=== PATIENT | female | born 1945 | race Caucasian/White ===

== ENCOUNTER 2018-03-07 14:00 | Emergency (ER) | payer MEDICARE, OTHER, SELFPAY ==
[2018-03-07 14:05] VITALS: BP 107/66; PULSE 65; RESP 20; TEMP 36.4; O2SAT 98
--- NOTE | 2018-03-07 14:12 | ED.UPPEXIN ---
HPI - Extremity Injury (Upper) <Fiordaliza Soares PA-C - Last Filed: 03/07/18 21:56> General Chief Complaint: Extremity Injury, Upper Stated Complaint: RIGHT SHOULDER POSSIBLY DISLOCATED Time Seen by Provider: 03/07/18 14:12 Source: patient Mode of arrival: ambulatory Limitations: no limitations History of Present Illness HPI narrative: This 72-year-old female was walking on wet pavement when she slipped and fell bracing on her outstretched right hand and arm. She felt a pop and then exquisite pain in her shoulder. She felt like it went out of joint, and states pain was so severe she got sweaty and almost passed out. She states that she had numbness and tingling radiating down into her arm. She states that pain has improved, and she does not have the radiation and numb/tingly sensation that she did initially. She denies other injuries such as head contusion, neck pain, or LOC. She states that she bumped her knee slightly but not bothering her, no difficulty walking. She states that she does not have any pain in other joints or in her hand. Related Data Previous Rx's Medication Instructions Recorded hydrocodone-acetaminophen [[place]] 1 tab PO Q6H PRN #10 tab 03/07/18 Allergies Allergy/AdvReac Type Severity Reaction Status Date / Time cephalexin [From Keflex] Allergy Verified 03/07/18 14:10 Review of Systems <Fiordaliza Soares PA-C - Last Filed: 03/07/18 21:56> Review of Systems All systems reviewed & are unremarkable except as noted in HPI and below Exam <Fiordaliza Soares PA-C - Last Filed: 03/07/18 21:56> Narrative Exam Narrative: GENERAL APPEARANCE: Patient appears slightly uncomfortable holding her right forearm, in NAD. LUNGS: Clear to auscultation bilaterally. HEART: Rate and rhythm regular without murmur, normal S1 and S2, no S3 or S4. MUSCULOSKELETAL: Right shoulder no tenderness over bony prominences. She holds in abduction with elbow flexed. No tenderness over the upper arm, elbow, forearm, wrist, hand or fingers. Plush Cutter strength 5/5. NEUROVASCULAR: right hand fingers are warm and pink, brisk cap refill, sensation grossly intact DERMATOLOGIC: No lacerations, ecchymoses or abrasions on the right upper extremity Initial Vital Signs Initial Vital Signs: Vital Signs Temperature 97.5 F L 03/07/18 14:05 Pulse Rate 65 03/07/18 14:05 Respiratory Rate 20 03/07/18 14:05 Blood Pressure 107/66 03/07/18 14:05 Pulse Oximetry 98 03/07/18 14:05 <Bryanna Villa DO - Last Filed: 03/08/18 08:10> Initial Vital Signs Initial Vital Signs: Vital Signs Temperature 97.5 F L 03/07/18 14:05 Pulse Rate 65 03/07/18 14:05 Respiratory Rate 20 03/07/18 14:05 Blood Pressure 107/66 03/07/18 14:05 Pulse Oximetry 98 03/07/18 14:05 Course <Fiordaliza Soares PA-C - Last Filed: 03/07/18 21:56> Orders Ordered: Discontinued Medications Hydrocodone Bitart/Acetaminophen ([place] 5/325) 1 tab PO NOW ONE Stop: 03/07/18 14:18 Last Admin: 03/07/18 14:35 Dose: 1 tab Ibuprofen (Advil) 400 mg PO NOW ONE Stop: 03/07/18 14:18 Last Admin: 03/07/18 14:35 Dose: 400 mg Vital Signs - 8 hr 03/07/18 14:05 03/07/18 16:10 Temperature 97.5 F L Pulse Rate 65 55 L Respiratory Rate 20 15 Blood Pressure 107/66 107/46 L Pulse Oximetry 98 100 <Bryanna Villa DO - Last Filed: 03/08/18 08:10> Orders Ordered: Discontinued Medications Hydrocodone Bitart/Acetaminophen ([place] 5/325) 1 tab PO NOW ONE Stop: 03/07/18 14:18 Last Admin: 03/07/18 14:35 Dose: 1 tab Ibuprofen (Advil) 400 mg PO NOW ONE Stop: 03/07/18 14:18 Last Admin: 03/07/18 14:35 Dose: 400 mg Vital Signs - 8 hr 03/07/18 14:05 03/07/18 16:10 Temperature 97.5 F L Pulse Rate 65 55 L Respiratory Rate 20 15 Blood Pressure 107/66 107/46 L Pulse Oximetry 98 100 MDM - Extremity Injury (Upper) <Fiordaliza Soares PA-C - Last Filed: 03/07/18 21:56> Imaging Data shoulder: Radiologist's impression: BACK Shoulder X-Ray (Signed) Chanel Baez - 03/07/18 View Report History [address] [address] XRay Report Signed Patient: Mare Ragsdale MR#: [id number] : 1945 Acct:[id number] Age/Sex: 72 / F Date of Service: 03/07/18 Loc: ED Accession Number: [id number] Procedure: XR shoulder RT min 2V Ordering Provider: Fiordaliza Soares P.A-C PROCEDURE: XR SHOULDER RT MIN 2V INDICATIONS: right shouder pain from ground level fall, pain, poss disloc TECHNIQUE: 3 views of the shoulder were acquired. COMPARISON: None. FINDINGS: Bones: There is a questionable fracture of the superior glenoid. No other fracture or dislocation. Visualized portions of the ribs are intact. Soft tissues: No suspicious soft tissue calcifications. IMPRESSION: Questionable superior glenoid fracture. No other fracture or dislocation. Dictated by: Chanel Baez M.D. on 03/07/2018 at 15:00 Approved by: Chanel Baez M.D. on 03/07/2018 at 15:01 Discharge Plan Departure Patient Disposition: Home Clinical Impression: Glenoid fracture of shoulder Discharge Date/Time: 03/07/18 16:12 Interventions: ED Discharge Assessment Last Done: 03/07/18 16:10 Instructions: DI for Shoulder Fracture Activity Restrictions/Additional Instructions: Please return as we talked about if you have any acutely worsening symptoms. Otherwise, keep your shoulder in the sling, and call Orthopedics today or 1st thing in the morning and let them know you were seen in the ED for shoulder fracture and need to set up a follow-up visit. I will send your records there. You can take ibuprofen as you normally would at home for pain, and you can add the prescription hydrocodone/acetaminophen that we gave you here as needed, but remember that can make you sleepy and no driving. Also take a stool softener if you use it. Prescriptions: New hydrocodone-acetaminophen [[place]] 5-325 mg tablet 1 tab PO Q6H PRN (Reason: shoulder pain) Qty: 10 RF: 0 Referrals: Librado Ramirez MD [Primary Care Provider] - Mena Díaz MD [Physician] - <Bryanna Villa DO - Last Filed: 03/08/18 08:10> Cosign ED Attending Cosyasature Attestation: I was immediately available in the department for consultation. Documentation has been reviewed. I agree with assessment and plan.
--- NOTE | 2018-03-07 14:17 | DI.RAD.S_ITS ---
PROCEDURE: XR SHOULDER RT MIN 2V INDICATIONS: right shouder pain from ground level fall, pain, poss disloc TECHNIQUE: 3 views of the shoulder were acquired. COMPARISON: None. FINDINGS: Bones: There is a questionable fracture of the superior glenoid. No other fracture or dislocation. Visualized portions of the ribs are intact. Soft tissues: No suspicious soft tissue calcifications. IMPRESSION: Questionable superior glenoid fracture. No other fracture or dislocation. Dictated by: Chanel Baez M.D. on 03/07/2018 at 15:00 Approved by: Chanel Baez M.D. on 03/07/2018 at 15:01
--- NOTE | 2018-03-07 14:26 | ED_ITS ---
HPI - Extremity Injury (Upper) <Fiordaliza Soares PA-C - Last Filed: 03/07/18 21:56> General Chief Complaint: Extremity Injury, Upper Stated Complaint: RIGHT SHOULDER POSSIBLY DISLOCATED Time Seen by Provider: 03/07/18 14:12 Source: patient Mode of arrival: ambulatory Limitations: no limitations History of Present Illness HPI narrative: This 72-year-old female was walking on wet pavement when she slipped and fell bracing on her outstretched right hand and arm. She felt a pop and then exquisite pain in her shoulder. She felt like it went out of joint , and states pain was so severe she got sweaty and almost passed out. She states that she had numbness and tingling radiating down into her arm. She states that pain has improved, and she does not have the radiation and numb/ tingly sensation that she did initially. She denies other injuries such as head contusion, neck pain, or LOC. She states that she bumped her knee slightly but not bothering her, no difficulty walking. She states that she does not have any pain in other joints or in her hand. Related Data Previous Rx's Medication Instructions Recorded hydrocodone-acetaminophen [[place]] 1 tab PO Q6H PRN #10 tab 03/07/18 Allergies Allergy/AdvReac Type Severity Reaction Status Date / Time cephalexin [From Keflex] Allergy Verified 03/07/18 14:10 Review of Systems <Fiordaliza Soares PA-C - Last Filed: 03/07/18 21:56> Review of Systems All systems reviewed & are unremarkable except as noted in HPI and below Exam <Fiordaliza Soares PA-C - Last Filed: 03/07/18 21:56> Narrative Exam Narrative: GENERAL APPEARANCE: Patient appears slightly uncomfortable holding her right forearm, in NAD. LUNGS: Clear to auscultation bilaterally. HEART: Rate and rhythm regular without murmur, normal S1 and S2, no S3 or S4. MUSCULOSKELETAL: Right shoulder no tenderness over bony prominences. She holds in abduction with elbow flexed. No tenderness over the upper arm, elbow, forearm, wrist, hand or fingers. Visual Design Lead strength 5/5. NEUROVASCULAR: right hand fingers are warm and pink, brisk cap refill, sensation grossly intact DERMATOLOGIC: No lacerations, ecchymoses or abrasions on the right upper extremity Initial Vital Signs Initial Vital Signs: Vital Signs Temperature 97.5 F L 03/07/18 14:05 Pulse Rate 65 03/07/18 14:05 Respiratory Rate 20 03/07/18 14:05 Blood Pressure 107/66 03/07/18 14:05 Pulse Oximetry 98 03/07/18 14:05 <Bryanna Villa DO - Last Filed: 03/08/18 08:10> Initial Vital Signs Initial Vital Signs: Vital Signs Temperature 97.5 F L 03/07/18 14:05 Pulse Rate 65 03/07/18 14:05 Respiratory Rate 20 03/07/18 14:05 Blood Pressure 107/66 03/07/18 14:05 Pulse Oximetry 98 03/07/18 14:05 Course <Fiordaliza Soares PA-C - Last Filed: 03/07/18 21:56> Orders Ordered: Discontinued Medications Hydrocodone Bitart/Acetaminophen ([place] 5/325) 1 tab PO NOW ONE Stop: 03/07/18 14:18 Last Admin: 03/07/18 14:35 Dose: 1 tab Ibuprofen (Advil) 400 mg PO NOW ONE Stop: 03/07/18 14:18 Last Admin: 03/07/18 14:35 Dose: 400 mg Vital Signs - 8 hr 03/07/18 14:05 03/07/18 16:10 Temperature 97.5 F L Pulse Rate 65 55 L Respiratory Rate 20 15 Blood Pressure 107/66 107/46 L Pulse Oximetry 98 100 <Bryanna Villa DO - Last Filed: 03/08/18 08:10> Orders Ordered: Discontinued Medications Hydrocodone Bitart/Acetaminophen ([place] 5/325) 1 tab PO NOW ONE Stop: 03/07/18 14:18 Last Admin: 03/07/18 14:35 Dose: 1 tab Ibuprofen (Advil) 400 mg PO NOW ONE Stop: 03/07/18 14:18 Last Admin: 03/07/18 14:35 Dose: 400 mg Vital Signs - 8 hr 03/07/18 14:05 03/07/18 16:10 Temperature 97.5 F L Pulse Rate 65 55 L Respiratory Rate 20 15 Blood Pressure 107/66 107/46 L Pulse Oximetry 98 100 MDM - Extremity Injury (Upper) <Fiordaliza Soares PA-C - Last Filed: 03/07/18 21:56> Imaging Data shoulder: Radiologist's impression: BACK Shoulder X-Ray (Signed) Chanel Baez - 03/07/18 View Report History [address] [address] XRay Report Signed Patient: Mare Ragsdale MR#: [id number] : 1945 Acct:[id number] Age/Sex: 72 / F Date of Service: 03/07/18 Loc: ED Accession Number: [id number] Procedure: XR shoulder RT min 2V Ordering Provider: Fiordaliza Soares P.A-C PROCEDURE: XR SHOULDER RT MIN 2V INDICATIONS: right shouder pain from ground level fall, pain, poss disloc TECHNIQUE: 3 views of the shoulder were acquired. COMPARISON: None. FINDINGS: Bones: There is a questionable fracture of the superior glenoid. No other fracture or dislocation. Visualized portions of the ribs are intact. Soft tissues: No suspicious soft tissue calcifications. IMPRESSION: Questionable superior glenoid fracture. No other fracture or dislocation. Dictated by: Chanel Baez M.D. on 03/07/2018 at 15:00 Approved by: Chanel Baez M.D. on 03/07/2018 at 15:01 Discharge Plan Departure Patient Disposition: Home Clinical Impression: Glenoid fracture of shoulder Discharge Date/Time: 03/07/18 16:12 Interventions: ED Discharge Assessment Last Done: 03/07/18 16:10 Instructions: DI for Shoulder Fracture Activity Restrictions/Additional Instructions: Please return as we talked about if you have any acutely worsening symptoms. Otherwise, keep your shoulder in the sling, and call Orthopedics today or 1st thing in the morning and let them know you were seen in the ED for shoulder fracture and need to set up a follow-up visit. I will send your records there. You can take ibuprofen as you normally would at home for pain, and you can add the prescription hydrocodone/acetaminophen that we gave you here as needed, but remember that can make you sleepy and no driving. Also take a stool softener if you use it. Prescriptions: New hydrocodone-acetaminophen [[place]] 5-325 mg tablet 1 tab PO Q6H PRN (Reason: shoulder pain) Qty: 10 RF: 0 Referrals: Librado Ramirez MD [Primary Care Provider] - Mena Díaz MD [Physician] - <Bryanna Villa DO - Last Filed: 03/08/18 08:10> Cosign ED Attending Cosyasature Attestation: I was immediately available in the department for consultation. Documentation has been reviewed. I agree with assessment and plan.
[2018-03-07] MEDS: HYDROCODONE/ACET 5/325 TABLET 1 TAB PO (14:35)
[2018-03-07] MEDS: IBUPROFEN 400 MG TABLET PO (14:35)
[2018-03-07 16:10] VITALS: BP 107/46; PULSE 55; RESP 15; O2SAT 100
== END 2018-03-07 16:12 | disposition home or self-care (01) ==
PROVIDERS: Emergency Provider Internal Medicine; Family Provider Family Medicine; PCP Family Medicine
DX: S42.141A Displaced fracture of glenoid cavity of scapula, right shoulder, initial encounter for closed fracture (principal); W01.0XXA Fall on same level from slipping, tripping and stumbling without subsequent striking against object, initial encounter
CPT/HCPCS: 73030; 99282; 99283

== ENCOUNTER → 2018-09-21 11:16 | Outpatient (CLI) | payer MEDICARE, OTHER, SELFPAY ==
--- NOTE | 2018-09-21 | DI.MG.S_ITS ---
BILATERAL DIGITAL SCREENING MAMMOGRAM 3D/2D WITH CAD: 09/21/2018 CLINICAL: Routine screening. Comparison is made to exams dated: 09/20/2017 mammogram, 09/14/2016 mammogram, and 09/10/2015 mammogram - [facility]. The tissue of both breasts is heterogeneously dense. This may lower the sensitivity of mammography. Current study was also evaluated with a Computer Aided Detection (CAD) system. No significant masses, calcifications, or other findings are seen in either breast. There has been no significant interval change. IMPRESSION: NEGATIVE There is no mammographic evidence of malignancy. A 1 year screening mammogram is recommended. This exam was interpreted at Station ID: [id number]. NOTE: For mammograms, a report in lay terms will be sent to the patient. Approximately 15% of breast malignancies will not be visualized mammographically. In the management of a palpable breast mass, a negative mammogram must not discourage biopsy of a clinically suspicious lesion. Electronically Signed By: Chanel disla/michelle:09/21/2018 12:31:44 letter sent: Normal Exam ACR BI-RADS Category 1: Negative [id number]
== END ==
PROVIDERS: PCP Family Medicine; Visit Provider Family Medicine
DX: Z12.31 Encounter for screening mammogram for malignant neoplasm of breast (principal); Z78.0 Asymptomatic menopausal state; E07.9 Disorder of thyroid, unspecified; Z90.722 Acquired absence of ovaries, bilateral; Z87.891 Personal history of nicotine dependence
CPT/HCPCS: 77063; 77067; 77080

== ENCOUNTER 2018-10-23 10:24 | Day surgery (SDC) | payer MEDICARE, OTHER, SELFPAY ==
[2018-10-23] MEDS: PROPARACAINE 0.5% OPHTH SOL 2 DROPS EYE-OP (10:50)
[2018-10-23] MEDS: CATARACT EYE COMPOUND (10 DROPS/SYRINGE) 3 DROPS EYE-OP ×3 (10:54→11:14)
[2018-10-23 11:03] VITALS: BP 139/65; PULSE 70; RESP 16; TEMP 36.7; O2SAT 100; BMI 29.2
--- NOTE | 2018-10-23 11:39 | PM.PREOP ---
Pre-operative Note Interval Note History & Physical reviewed/Exam performed by Physician: No Changes to H&P: No
--- NOTE | 2018-10-23 11:39 | PM.OP.1 ---
Operative Date/Time/Diagnoses Pre-op diagnosis: Nuclear Cataract Left eye Post-op diagnosis: same Procedure & Clinicians Surgeon: Memo Adamson Anesthesia Type: MAC +/- and Sedation Operative Notes Procedure in detail: Patient brought to the operating suite. Tetracaine drops placed in the left eye. Patient was prepped and draped in sterile manner. Wire lid speculum was placed in the eye. Betadine drops were placed on the eye. This was irrigated. Lidocaine jelly was placed on the eye. A paracentesis port was created with a side-port blade. 0.1 mL 1% preservative free lidocaine was injected into the anterior chamber. The anterior chamber was deepened with viscoelastic. 2.6 mm keratome was used to create a temporal clear corneal incision. Cystotome and Utrata forceps were used to create continuous tear capsulorrhexis. Balanced salt solution was used to hydro dissect the nucleus. The phacoemulsification handpiece was inserted and the nucleus was removed using the stop and chop technique. The irrigation aspiration handpiece was inserted and the remaining cortex was removed. Anterior chamber was deepened with viscoelastic. An Aguilar ZCB00 intraocular lens with a power of 24.0 was injected into the capsular bag. Irrigation aspiration handpiece was inserted and the remaining viscoelastic was removed. Incision was hydrated with balanced salt solution and found to be leak free with pressure with Weck-Alexandria sponges. 0.1 mL Vigamox injected anterior chamber. 0.3 mL Kenalog 10 mg was injected subconjunctivally. Lid speculum was removed. The patient left the operating room in excellent condition. Complications: none Condition: stable Disposition: same day surgery
[2018-10-23] MEDS: PHENYLEPHRINE/LIDOCAINE VIAL (OR) 0.2 ML EYE-OP (11:58)
[2018-10-23] MEDS: CHONDROIDTIN/SOD HYALURONATE 1.05 ML SYRINGE INTRAOCULA (11:59)
[2018-10-23] MEDS: MOXIFLOXACIN OPHTH DROPS 3 ML BOTTLE 2 DROPS INJ (11:59)
[2018-10-23] MEDS: LIDOCAINE JELLY 2% 5 ML 1 APPLIC TOP (11:59)
[2018-10-23] MEDS: TRIAMCINOLONE 50 MG/5 ML VIAL INJ (11:59)
[2018-10-23] MEDS: BALANCED SALT IRRIG SOLN NO.2 500 ML, EPINEPHrine 1 MG IRR (12:00)
[2018-10-23] MEDS: TETRACAINE 0.5% OPHTH DROPS 4 ML 2 DROPS EYE-OP (12:00)
[2018-10-23 12:15] VITALS: BP 131/71; PULSE 74; RESP 16; TEMP 36.7; O2SAT 100
== END 2018-10-23 12:28 ==
LOC: OR 10:32
PROVIDERS: PCP Family Medicine; Visit Provider Ophthalmology
DX: H25.12 Age-related nuclear cataract, left eye (principal); I10 Essential (primary) hypertension
CPT/HCPCS: J0171; J2250; J3010; J3301

== ENCOUNTER 2018-11-06 09:16 | Day surgery (SDC) | payer MEDICARE, OTHER, SELFPAY ==
[2018-11-06] MEDS: PROPARACAINE 0.5% OPHTH SOL 2 DROPS EYE-OP (10:10)
[2018-11-06] MEDS: CATARACT EYE COMPOUND (10 DROPS/SYRINGE) 3 DROPS EYE-OP ×3 (10:12→10:27)
[2018-11-06 10:20] VITALS: BP 134/71; PULSE 67; RESP 14; TEMP 36.3; O2SAT 100; BMI 31.3
--- NOTE | 2018-11-06 11:27 | PM.PREOP ---
Pre-operative Note Interval Note History & Physical reviewed/Exam performed by Physician: No Changes to H&P: No
--- NOTE | 2018-11-06 11:27 | PM.OP.1 ---
Operative Date/Time/Diagnoses Pre-op diagnosis: Nuclear cataract right eye Procedure & Clinicians Procedure: Cataract Surgery Same procedure as scheduled: Yes Surgeon: Memo Adamson Anesthesia Type: MAC +/- and Sedation Operative Notes Procedure in detail: Patient brought to the operating suite. Tetracaine drops placed in the right eye. Patient was prepped and draped in sterile manner. Wire lid speculum was placed in the eye. Betadine drops were placed on the eye. This was irrigated. Lidocaine jelly was placed on the eye. A paracentesis port was created with a side-port blade. 0.1 mL 1% preservative free lidocaine was injected into the anterior chamber. The anterior chamber was deepened with viscoelastic. 2.6 mm keratome was used to create a temporal clear corneal incision. Cystotome and Utrata forceps were used to create continuous tear capsulorrhexis. Balanced salt solution was used to hydro dissect the nucleus. The phacoemulsification handpiece was inserted and the nucleus was removed using the stop and chop technique. The irrigation aspiration handpiece was inserted and the remaining cortex was removed. Anterior chamber was deepened with viscoelastic. An Aguilar ZCB00 intraocular lens with a power of 24.0 was injected into the capsular bag. Irrigation aspiration handpiece was inserted and the remaining viscoelastic was removed. Incision was hydrated with balanced salt solution and found to be leak free with pressure with Weck-Alexandria sponges. 0.1 mL Vigamox injected anterior chamber. 0.3 mL Kenalog 10 mg was injected subconjunctivally. Lid speculum was removed. The patient left the operating room in excellent condition. Complications: none Condition: stable Disposition: same day surgery
[2018-11-06] MEDS: TRIAMCINOLONE 50 MG/5 ML VIAL INJ (11:47)
[2018-11-06] MEDS: MOXIFLOXACIN OPHTH DROPS 3 ML BOTTLE 2 DROPS INJ (11:47)
[2018-11-06] MEDS: CHONDROIDTIN/SOD HYALURONATE 1.05 ML SYRINGE INTRAOCULA (11:47)
[2018-11-06] MEDS: PHENYLEPHRINE/LIDOCAINE VIAL (OR) 0.2 ML EYE-OP (11:47)
[2018-11-06] MEDS: LIDOCAINE JELLY 2% 5 ML 1 APPLIC TOP (11:48)
[2018-11-06] MEDS: TETRACAINE 0.5% OPHTH DROPS 4 ML 2 DROPS EYE-OP (11:48)
[2018-11-06] MEDS: BALANCED SALT IRRIG SOLN NO.2 500 ML, EPINEPHrine 1 MG IRR (11:48)
[2018-11-06 12:00] VITALS: BP 127/64; PULSE 68; RESP 16; TEMP 36.1; O2SAT 100
== END 2018-11-06 12:19 | disposition home or self-care (01) ==
LOC: OR 09:18
PROVIDERS: PCP Family Medicine; Visit Provider Ophthalmology
DX: H25.11 Age-related nuclear cataract, right eye (principal); Z86.73 Personal history of transient ischemic attack (TIA), and cerebral infarction without residual deficits; I10 Essential (primary) hypertension
CPT/HCPCS: J0171; J2250; J3010; J3301

== ENCOUNTER 2019-03-29 12:43 | Day surgery (SDC) | payer MEDICARE, OTHER, SELFPAY ==
[2019-03-29] MEDS: HYOSCYAMINE 0.125 MG TABLET PO (13:15)
[2019-03-29] MEDS: SODIUM CHLORIDE 0.9% 1,000 ML 200 ML IV (13:15)
[2019-03-29 13:24] VITALS: BP 143/74; PULSE 81; RESP 16; TEMP 36.1; O2SAT 100; BMI 28.8
--- NOTE | 2019-03-29 14:38 | PM.PREOP ---
Pre-operative Note Interval Note History & Physical reviewed/Exam performed by Physician: Yes Changes to H&P: No ASA Class (for procedural sedation): II
--- NOTE | 2019-03-29 14:38 | PM.OP.ENDO ---
Operative Date/Time/Diagnoses Date of procedure: 03/29/19 Time of procedure: 14:38 Pre-op diagnosis: 1. Screening for colon cancer Post-op diagnosis: same Procedure & Clinicians Study performed: 1. Colonoscopy Same procedure as scheduled: Yes Indications: 1. Screening for colon cancer Surgeon: Mya Porter Procedure Notes SCOAP/Timeout: 14:47 Procedure in detail: ENDOSCOPIST: Mya Porter MD Sedation RN: Silvia Steel RN Sedation start time: 2:47 p.m. Sedation in time: 3:14 p.m. PROCEDURE: Colonoscopy INDICATIONS: 1. Screening for colon cancer MEDICATION: Levsin 0.125 mg sublingual, incremental doses of Versed and fentanyl until appropriate level sedation achieved. ASA CLASS: 2 CECAL WITHDRAWAL TIME: 9 minutes TOTAL PROCEDURE TIME: 23 minutes. COMPLICATIONS: None. EXTENT OF PROCEDURE: Cecum. QUALITY OF PREP: Good with portions of liquid stool. PROCEDURE: Prior to insertion of the colonoscope, a digital rectal examination was accomplished with circumferential palpation of the distal rectal mucosa without significant findings being noted. The high-definition pediatric colonoscope was passed into the rectum in the usual fashion and advanced over to the cecum without difficulty. The ileocecal valve, appendiceal stoma, and medial wall all could be inspected and no abnormalities were seen. ASCENDING COLON: As the colonoscope was withdrawn, care was taken to expose and inspect the haustral folds and no abnormalities were seen. HEPATIC FLEXURE: Normal no polyps, diverticula or other abnormalities. TRANSVERSE COLON: Normal no polyps, diverticula or other abnormalities. DESCENDING COLON: Minor diverticulosis, otherwise, normal no polyps, or other abnormalities. SIGMOID COLON: Moderate diverticulosis, otherwise, normal no polyps, or other abnormalities. RECTUM: Normal. J maneuver was produced. There was no significant perianal disease. The J maneuver was broken. The remainder of the rectum was inspected and there was no external hemorrhoid disease. The scope was withdrawn. IMPRESSION: 1. Normal colonoscopy 2. Diverticulosis, left-sided, mild-moderate PLAN: 1. Repeat colonoscopy in 10 years. The possibility of a missed lesion including a malignancy has been discussed with the patient previously. Potential alarm symptoms have been discussed and should be reported immediately. Scope withdrawal time: 9 minutes Sedation minutes: 26 Findings: diverticulosis Specimen(s): none sent Complications: none Impression: As above Post-procedure Recommendations: Colonscopy in 10 years Follow up: as needed Disposition: PACU
[2019-03-29] MEDS: fentaNYL 250 MCG/5 ML INJ IV (15:16)
[2019-03-29] MEDS: MIDAZOLAM 5 MG/5 ML VIAL IV (15:17)
[2019-03-29] MEDS: GLUCAGON,HUMAN RECOMBINANT 1 MG/ML VIAL IV (15:18)
[2019-03-29 15:19] VITALS: BP 111/63; PULSE 88; RESP 14; TEMP 37.1; O2SAT 98
[2019-03-29 15:24] VITALS: BP 120/70; PULSE 87; RESP 20; O2SAT 99
[2019-03-29 15:45] VITALS: BP 120/68; PULSE 68; RESP 16; TEMP 36.6; O2SAT 98
== END 2019-03-29 15:54 | disposition home or self-care (01) ==
PROVIDERS: PCP Family Medicine; Visit Provider Student in an Organized Health Care Education/Training Program
PROC: 0DJD8ZZ Inspection of Lower Intestinal Tract, Via Natural or Artificial Opening Endoscopic (ICD-10-PCS; CPT 45378; principal; 2019-03-29 14:00)
DX: Z12.11 Encounter for screening for malignant neoplasm of colon (principal); K57.30 Diverticulosis of large intestine without perforation or abscess without bleeding
CPT/HCPCS: G0121; J1610; J2250; J3010

== ENCOUNTER → 2020-01-29 11:12 | Outpatient (CLI) | payer MEDICARE, OTHER, SELFPAY ==
--- NOTE | 2020-01-29 | DI.MG.S_ITS ---
BILATERAL DIGITAL SCREENING MAMMOGRAM 3D/2D WITH CAD: 01/29/2020 CLINICAL: Routine screening. Comparison is made to exams dated: 09/21/2018 mammogram, 09/20/2017 mammogram, and 09/14/2016 mammogram - [facility]. There are scattered fibroglandular elements in both breasts. Current study was also evaluated with a Computer Aided Detection (CAD) system. No significant masses, calcifications, or other findings are seen in either breast. There has been no significant interval change. IMPRESSION: NEGATIVE There is no mammographic evidence of malignancy. A 1 year screening mammogram is recommended. This exam was interpreted at Station ID: [id number]. NOTE: For mammograms, a report in lay terms will be sent to the patient. Approximately 15% of breast malignancies will not be visualized mammographically. In the management of a palpable breast mass, a negative mammogram must not discourage biopsy of a clinically suspicious lesion. Electronically Signed By: Felipe tomas/michelle:01/29/2020 17:34:00 letter sent: Normal Exam ACR BI-RADS Category 1: Negative 3341F
== END ==
PROVIDERS: PCP Family Medicine; Referring Provider Family Medicine; Visit Provider Family Medicine
DX: Z12.31 Encounter for screening mammogram for malignant neoplasm of breast (principal)
CPT/HCPCS: 77063; 77067

== ENCOUNTER → 2021-02-01 11:03 | Outpatient (CLI) | payer MEDICARE, OTHER, SELFPAY ==
--- NOTE | 2021-02-01 | DI.MG.S_ITS ---
BILATERAL DIGITAL SCREENING MAMMOGRAM 3D/2D WITH CAD: 02/01/2021 CLINICAL: Routine screening. Comparison is made to exams dated: 01/29/2020 mammogram, 09/21/2018 mammogram, and 09/20/2017 mammogram - [facility]. There are scattered fibroglandular elements in both breasts. Current study was also evaluated with a Computer Aided Detection (CAD) system. There is new cluster of grouped fine calcifications in the left breast sub-areolar depth central to the nipple seen on the craniocaudal view only. No other significant masses, calcifications, or other findings are seen in either breast. IMPRESSION: INCOMPLETE: NEEDS ADDITIONAL IMAGING EVALUATION The new cluster of grouped fine calcifications in the left breast are indeterminate. Magnification views are recommended. This exam was interpreted at Station ID: [id number]. NOTE: For mammograms, a report in lay terms will be sent to the patient. Approximately 15% of breast malignancies will not be visualized mammographically. In the management of a palpable breast mass, a negative mammogram must not discourage biopsy of a clinically suspicious lesion. Electronically Signed By: Francisco J Jamison M.D., jr/michelle:02/01/2021 11:29:23 letter sent: Additional Imaging Needed ACR BI-RADS Category 0: Incomplete [id number]
== END ==
PROVIDERS: PCP Family Medicine; Referring Provider Family Medicine; Visit Provider Family Medicine
DX: Z12.31 Encounter for screening mammogram for malignant neoplasm of breast (principal)
CPT/HCPCS: 77063; 77067

== ENCOUNTER → 2021-02-22 12:37 | Outpatient (CLI) | payer MEDICARE, OTHER, SELFPAY ==
--- NOTE | 2021-02-22 | DI.MG.S_ITS ---
UNILATERAL LEFT DIGITAL DIAGNOSTIC MAMMOGRAM 3D/2D WITH ADDITIONAL VIEWS: 02/22/2021 CLINICAL: Additional evaluation requested from prior study. Comparison is made to exams dated: 02/01/2021 mammogram, 01/29/2020 mammogram, and 09/21/2018 mammogram - [facility]. The tissue of left breast is heterogeneously dense. This may lower the sensitivity of mammography. The calcifications in the left breast sub-areolar depth central to the nipple seen on the craniocaudal view only are not seen on additional views. Findings were likely artifactual. No other significant masses or calcifications are seen in the breast. IMPRESSION: BENIGN There is no mammographic evidence of malignancy. A 1 year screening mammogram is recommended. Left breast subareolar calcifications not seen on additional views and were likely artifactual on the prior study. This exam was interpreted at Station ID: [id number]. NOTE: For mammograms, a report in lay terms will be sent to the patient. Approximately 15% of breast malignancies will not be visualized mammographically. In the management of a palpable breast mass, a negative mammogram must not discourage biopsy of a clinically suspicious lesion. Electronically Signed By: Romero Lora M.D. ddmalathi/:02/22/2021 13:35:11 letter sent: Normal Exam ACR BI-RADS Category 2: Benign Finding(s) 3342F
== END ==
PROVIDERS: PCP Family Medicine; Referring Provider Family Medicine; Visit Provider Family Medicine
DX: R92.1 Mammographic calcification found on diagnostic imaging of breast (principal); R92.8 Other abnormal and inconclusive findings on diagnostic imaging of breast
CPT/HCPCS: 77065; G0279

== ENCOUNTER → 2021-03-02 11:29 | Outpatient (CLI) | payer MEDICARE, OTHER, SELFPAY ==
--- NOTE | 2021-03-02 | DI.RAD.S_ITS ---
PROCEDURE: XR LUMBAR SPINE 2-3V INDICATIONS: Lumbago with sciatica, left side TECHNIQUE: 3 views of the lumbar spine were acquired. COMPARISON: None. FINDINGS: Bones: 5 [id number] vertebrae are present. There is mild grade 1 anterolisthesis of L4 on L5. Facet hypertrophy throughout the mid and lower lumbar spine. No vertebral body compression fractures. No suspicious bony lesions. Mild multilevel endplate osteophyte formation. Soft tissues: Overlying bowel gas pattern is normal. No suspicious soft tissue calcifications. IMPRESSION: 1. Multilevel facet osteoarthritis and disc disease. 2. No acute fracture. No osseous lesion. If symptoms and/or clinical suspicion for pathology persist, further assessment with repeat, or advanced imaging (e.g., CT, MRI, or bone scan) may be helpful for further assessment. Dictated by: Virgil Alvares M.D. on 03/02/2021 at 13:30 Approved by: Virgil Alvares M.D. on 03/02/2021 at 13:31
== END ==
PROVIDERS: PCP Family Medicine; Referring Provider Family Medicine; Visit Provider Family Medicine
DX: M54.42 Lumbago with sciatica, left side (principal); M47.816 Spondylosis without myelopathy or radiculopathy, lumbar region
CPT/HCPCS: 72100

== ENCOUNTER → 2021-03-05 16:39 | Outpatient (CLI) | payer MEDICARE, OTHER, SELFPAY ==
--- NOTE | 2021-03-05 16:41 | DI.MRI.S_ITS ---
PROCEDURE: MR LUMBAR SPINE WO CON INDICATIONS: LOW BACK PAIN TECHNIQUE: Noncontrast sagittal T1 spin echo and T2 fast echo, sagittal STIR, axial T1 and T2 fast spin echo through the lumbar spine. In cases with scoliosis, additional coronal T2 fast spin echo may be performed. COMPARISON: None. FINDINGS: Image quality: Excellent. Alignment and Curvature: There is grade 1 anterolisthesis of L4 on L5. Bone Marrow: Marrow is of normal overall signal. No acute vertebral body compression fractures. Spinal Cord: Conus medullaris terminates at the L1 level. Visualized cord demonstrates normal signal and size. Paraspinous Soft Tissues: No paravertebral masses. T12-L1: Normal appearance. L1-L2: Normal appearance. L2-L3: There is loss of disc signal. Mild broad-based disc bulge and bilateral facet arthrosis is seen. There is no significant central canal stenosis or neural foraminal narrowing. L3-L4: There is slight loss of disc height and loss of disc signal. Broad-based disc bulge and bilateral facet arthrosis is seen with hypertrophy of ligamentum flavum causing [id number] central canal stenosis and mild bilateral neural foraminal narrowing. L4-L5: There is loss of disc height and disc signal. Diffuse disc bulge and bilateral facet arthrosis is seen with mild central canal stenosis and mild bilateral neural foraminal narrowing. L5-S1: There is mild loss of disc height and disc signal. No significant central canal stenosis or neural foraminal narrowing is seen. IMPRESSION: 1. Degenerative disc disease at L2-3 through L5-S1 levels causing [id number] central canal stenosis and bilateral neural foraminal narrowing as described above. 2. Grade 1 anterolisthesis of L4 on L5. No marrow edema. No compression fracture. Dictated by: Issa Garcia M.D. on 03/08/2021 at 9:51 Approved by: Issa Garcia M.D. on 03/08/2021 at 10:09
== END ==
PROVIDERS: PCP Family Medicine; Referring Provider Family Medicine; Visit Provider Family Medicine
DX: M54.5 Low back pain (principal); M51.36 Other intervertebral disc degeneration, lumbar region; M51.37 Other intervertebral disc degeneration, lumbosacral region; M48.061 Spinal stenosis, lumbar region without neurogenic claudication; M48.07 Spinal stenosis, lumbosacral region; M43.16 Spondylolisthesis, lumbar region
CPT/HCPCS: 72148

== ENCOUNTER → 2022-02-24 11:05 | Outpatient (CLI) | payer MEDICARE, OTHER, SELFPAY ==
--- NOTE | 2022-02-24 | DI.MG.S_ITS ---
BILATERAL DIGITAL SCREENING MAMMOGRAM 3D/2D WITH CAD: 02/24/2022 CLINICAL: Routine screening. Comparison is made to exams dated: 02/01/2021 mammogram, 01/29/2020 mammogram, and 09/21/2018 mammogram - [facility]. The tissue of both breasts is heterogeneously dense. This may lower the sensitivity of mammography. Current study was also evaluated with a Computer Aided Detection (CAD) system. No significant masses, calcifications, or other findings are seen in either breast. There has been no significant interval change. IMPRESSION: NEGATIVE There is no mammographic evidence of malignancy. A 1 year screening mammogram is recommended. Based on the Tyrer Cuzick model (a risk assessment model) the patient's lifetime risk is 2.4% and her 10 year risk is 0.0%. According to the ACR, ACS, and NCCN guidelines, an annual breast MRI exam along with mammogram is recommended if the patient's lifetime risk is 20% or greater. This exam was interpreted at Station ID: [id number]. NOTE: For mammograms, a report in lay terms will be sent to the patient. Approximately 15% of breast malignancies will not be visualized mammographically. In the management of a palpable breast mass, a negative mammogram must not discourage biopsy of a clinically suspicious lesion. Electronically Signed By: James carlos/michelle:02/24/2022 11:48:26 letter sent: Normal Exam ACR BI-RADS Category 1: Negative 3341F
== END ==
PROVIDERS: PCP Family Medicine; Referring Provider Family Medicine; Visit Provider Family Medicine
DX: Z12.31 Encounter for screening mammogram for malignant neoplasm of breast (principal)
CPT/HCPCS: 77063; 77067

== ENCOUNTER → 2023-03-01 14:15 | Outpatient (CLI) | payer MEDICARE, OTHER, SELFPAY ==
--- NOTE | 2023-03-01 | DI.MG.S_ITS ---
BILATERAL DIGITAL SCREENING MAMMOGRAM 3D/2D WITH CAD: 03/01/2023 CLINICAL: Routine screening. Comparison is made to exams dated: 02/24/2022 mammogram, 02/01/2021 mammogram, 01/29/2020 mammogram, and 09/21/2018 mammogram - . Both breasts are heterogeneously dense, which may obscure small masses (category c / 51-75% glandular tissue). Current study was also evaluated with a Computer Aided Detection (CAD) system. There are benign vascular calcifications in the left breast. No significant masses, calcifications, or other findings are seen in either breast. There has been no significant interval change. IMPRESSION: BENIGN There is no mammographic evidence of malignancy. A 1 year screening mammogram is recommended. Based on the Tyrer Cuzick model (a risk assessment model) the patient's lifetime risk is 2.1% and her 10 year risk is 0.0%. According to the ACR, ACS, and NCCN guidelines, an annual breast MRI exam along with mammogram is recommended if the patient's lifetime risk is 20% or greater. This exam was interpreted at Station ID: [id number]. NOTE: For mammograms, a report in lay terms will be sent to the patient. Approximately 15% of breast malignancies will not be visualized mammographically. In the management of a palpable breast mass, a negative mammogram must not discourage biopsy of a clinically suspicious lesion. Electronically Signed By: Sterling beyer/michelle:03/02/2023 09:08:52 letter sent: Normal Exam ACR BI-RADS Category 2: Benign Finding(s) 3342F
== END ==
PROVIDERS: PCP Family Medicine; Referring Provider Family Medicine; Visit Provider Family Medicine
DX: Z12.31 Encounter for screening mammogram for malignant neoplasm of breast (principal)
CPT/HCPCS: 77063; 77067

== ENCOUNTER → 2024-03-13 10:53 | Outpatient (CLI) | payer MEDICARE, OTHER, SELFPAY ==
--- NOTE | 2024-03-13 10:54 | DI.MG.S_ITS ---
BILATERAL DIGITAL SCREENING MAMMOGRAM 3D/2D WITH CAD: 03/13/2024 CLINICAL: Routine screening. Comparison is made to exams dated: 03/01/2023 mammogram, 02/24/2022 mammogram, and 02/01/2021 mammogram - [facility]. Both breasts are heterogeneously dense, which may obscure small masses (category c / 51-75% glandular tissue). Current study was also evaluated with a Computer Aided Detection (CAD) system. No significant masses, calcifications, or other findings are seen in either breast. There has been no significant interval change. IMPRESSION: NEGATIVE There is no mammographic evidence of malignancy. A 1 year screening mammogram is recommended. Based on the Tyrer Cuzick model (a risk assessment model) the patient's lifetime risk is 1.8% and her 10 year risk is 0.0%. According to the ACR, ACS, and NCCN guidelines, an annual breast MRI exam along with mammogram is recommended if the patient's lifetime risk is 20% or greater. This exam was interpreted at Station ID: [id number]. NOTE: For mammograms, a report in lay terms will be sent to the patient. Approximately 15% of breast malignancies will not be visualized mammographically. In the management of a palpable breast mass, a negative mammogram must not discourage biopsy of a clinically suspicious lesion. Electronically Signed By: Maylin Powell M.D., Ph.D. dewayne/michelle:03/15/2024 00:40:15 letter sent: Normal Exam ACR BI-RADS Category 1: Negative 3341F
== END ==
LOC: MAMMO 10:54
PROVIDERS: PCP Family Medicine; Referring Provider Family Medicine; Visit Provider Family Medicine
DX: Z12.31 Encounter for screening mammogram for malignant neoplasm of breast (principal); R92.333 Mammographic heterogeneous density, bilateral breasts
CPT/HCPCS: 77063; 77067

== ENCOUNTER → 2025-03-14 11:16 | Outpatient (CLI) | payer MEDICARE, OTHER, SELFPAY ==
--- NOTE | 2025-03-14 11:21 | DI.MG.S_ITS ---
MM screening mammo BI: 03/14/2025. BI-RADS: 1 CLINICAL: 79-year old female for bilateral screening mammogram. Tyrer-Cuzick lifetime risk of 0.8%. No personal or first-degree family history of breast cancer. PRIOR EXAMS 03/13/2024, 03/01/2023, 02/24/2022, 02/01/2021. MAMMOGRAPHY TECHNIQUE: 2D and 3D (tomosynthesis) digital mammographic views obtained, with additional images as needed for full coverage. Current study was also evaluated with a Computer Aided Detection (CAD) system. DENSITY C. The breasts are heterogeneously dense, which may obscure small masses. MAMMOGRAPHY FINDINGS Bilateral: No suspicious mass, asymmetry, microcalcification, or other abnormality seen. IMPRESSION: * No evidence of malignancy. RECOMMENDATIONS Bilateral * Annual screening mammography. OVERALL ASSESSMENT CATEGORY BI-RADS-1: Negative. The [employer] recommends annual screening mammography beginning at age 40 for women with average risk of breast cancer. ELECTRONICALLY SIGNED: Debbie Tineo M.D. on 03/14/2025 at 10:30:53 PM PT Interpreting Station ID: [id number]
== END ==
PROVIDERS: PCP Family Medicine; Referring Provider Family Medicine; Visit Provider Family Medicine
DX: Z12.31 Encounter for screening mammogram for malignant neoplasm of breast (principal); R92.333 Mammographic heterogeneous density, bilateral breasts
CPT/HCPCS: 77063; 77067

== ENCOUNTER 2025-07-01 11:29 | Emergency (ER) | payer MEDICARE, OTHER, SELFPAY ==
[2025-07-01 11:41] VITALS: BP 147/66; PULSE 73; RESP 18; TEMP 37; O2SAT 96; BMI 28.3
[2025-07-01] MEDS: DOXYCYCLINE HYCLATE 100 MG TABLET PO (12:52)
--- NOTE | 2025-07-01 17:34 | ED_ITS ---
HPI - Animal Bite <Shruthi Souza PA-C - Last Filed: 07/01/25 19:39> General Chief Complaint: Animal Bite Stated Complaint: dog bite monday possibly infected Time Seen by Provider: 07/01/25 12:10 Source: patient Mode of arrival: Ambulatory History of Present Illness HPI narrative: 79-year-old female presents to the ED status post a dog bite that happened 2 days ago. Patient was bit by a pit bull belonging to her neighbor. Dog was not provoked. Dog is up-to-date on all immunizations. Patient states that she was doing okay until this morning when she started noticing swelling on 1 of the dog bite sites on the right hand, with increased pain and swelling and redness that is creeping up her right arm. No numbness, tingling, weakness. Tetanus is up-to-date. Related Data Home Medications ?Medication ?Instructions ?Recorded ?Confirmed aspirin 81 mg tablet,delayed 81 mg PO DAILY 10/23/18 0 03/29/19 release lisinopril 5 mg tablet 15 mg PO DAILY 10/23/1803/11 trazodone 50 mg tablet 50 mg PO BEDTIME 10/23/18 Vitamin C 1,000 mg PO DAILY 11/06/18 atorvastatin 10 mg PO DAILY 11/06/1803/11 levothyroxine 50 mcg tablet 50 mcg PO DAILY 11/06/18 0 03/29/19 (Synthroid) vitamin B complex 1 cap PO DAILY 11/06/1803/11 Previous Rx's ?Medication ?Instructions ?Recorded mupirocin 2 % topical ointment 1 applic topical BID #1 5 grams 04/09/22 doxycycline hyclate 100 mg tablet 100 mg PO BID 14 day s #28 tabs 07/01/25 Allergies Allergy/AdvReac Type Severity Reaction Status Date / Time cephalexin (From Keflex) Allergy Severe Facial Verified 11/06/18 10:13 Swelling Review of Systems <Shruthi Souza PA-C - Last Filed: 07/01/25 19:39> Constitutional Constitutional: Denies chills, Denies fatigue, Denies fever(s), Denies frequent falls, Denies lethargy and Denies weakness Eyes Eyes: Denies change in vision, Denies eye discharge, Denies irritation and Denies loss of vision ENT Ears, Nose, Mouth, and Throat: Denies change in voice, Denies dizziness, Denies neck pain, Denies sore throat and Denies throat swelling Cardiovascular Cardiovascular: Denies chest pain, Denies irregular heart rhythm, Denies lightheadedness, Denies palpitations, Denies dyspnea, Denies dyspnea on exertion and Denies orthopnea Respiratory Respiratory: Denies cough, Denies dyspnea, Denies dyspnea on exertion and Denies wheezing Gastrointestinal Gastrointestinal: Denies abdominal pain, Denies change in bowel habits, Denies diarrhea, Denies nausea and Denies vomiting Musculoskeletal Musculoskeletal: Denies neck pain and Denies numbness Integumentary/Breasts Skin/Breast: Denies pruritus, Denies erythema, Denies rash and Reports wounds Neurologic Neurologic: Denies behavioral changes, Denies confusion, Denies dizziness, Denies frequent falls, Denies loss of vision, Denies numbness and Denies weakness Psychiatric Psychiatric: Denies anxiety, Denies behavioral changes, Denies confusion, Denies depression, Denies homicidal ideation and Denies suicidal ideation Endocrine Endocrine: Denies fatigue, Denies flushing and Denies palpitations Hematologic/Lymphatic Hematologic/Lymphatic: Denies easy bruising Allergic/Immunologic Allergic/Immunologic: Denies urticaria, Denies throat swelling and Denies wheezing Patient History <Shruthi Souza PA-C - Last Filed: 07/01/25 19:39> Medical History Varicose vein of leg Hypothyroidism Hyperlipidemia HTN (hypertension) TIA (transient ischemic attack) Surgical History Status post hysterectomy Social History household members: spouse Smoking Status: Never smoker Smoking Status: Never smoker alcohol intake frequency: 0-2 drinks per day Alcohol type: wine Exam <Shruthi Souza PA-C - Last Filed: 07/01/25 19:39> Narrative Exam Narrative: Const General:?cooperative, healthy appearing and comfortable [facility] Head:?normal to inspection Ears:?hearing grossly normal bilaterally Nose:?external nose normal Face and sinus:?normal facial exam and sinuses nontender Mouth:?oral mucosae normal Throat:?posterior oropharynx normal Eyes General:?appearance normal, both eyes and all related structures Neck Neck:?normal visual inspection and no lymphadenopathy noted Resp Effort & Inspection:?normal respiratory effort Auscultation:?clear to auscultation bilaterally Cardio Rate:?regular rate Rhythm:?regular rhythm Integumentary There are 3 wounds to the right arm, 1 on the inner wrist and the other 2 on the distal forearm. The 1 on the wrist appears to be infected. There is erythema tracking up to the right elbow. Neurovascularly intact. Neuro General:?patient alert, patient awake and patient oriented x3 Initial Vital Signs Initial Vital Signs: Vital Signs Temperature 98.6 F 07/01/25 11:41 Pulse Rate 73 07/01/25 11:41 Respiratory Rate 18 07/01/25 11:41 Blood Pressure 147/66 H 07/01/25 11:41 Pulse Oximetry 96 07/01/25 11:41 Oxygen Delivery Method Room Air 07/01/25 11:41 <Henna Venegas DO - Last Filed: 07/02/25 10:05> Initial Vital Signs Initial Vital Signs: Vital Signs Temperature 98.6 F 07/01/25 11:41 Pulse Rate 73 07/01/25 11:41 Respiratory Rate 18 07/01/25 11:41 Blood Pressure 147/66 H 07/01/25 11:41 Pulse Oximetry 96 07/01/25 11:41 Oxygen Delivery Method Room Air 07/01/25 11:41 Course <Shruthi Souza PA-C - Last Filed: 07/01/25 19:39> Orders Ordered: Discontinued Medications Doxycycline Hyclate (Doxycycline Hyclate 100 Mg Tablet) 100 mg PO NOW ONE Stop: 07/01/25 12:37 Last Admin: 07/01/25 12:52 Dose: 100 mg Documented By: CHLOE Vital Signs Vital signs: Vital Signs - 8 hr 07/01/25 11:41 Temperature 98.6 F Pulse Rate 73 Respiratory Rate 18 Blood Pressure 147/66 H Pulse Oximetry 96 Oxygen Delivery Method Room Air <Henna Venegas DO - Last Filed: 07/02/25 10:05> Orders Ordered: Discontinued Medications Doxycycline Hyclate (Doxycycline Hyclate 100 Mg Tablet) 100 mg PO NOW ONE Stop: 07/01/25 12:37 Last Admin: 07/01/25 12:52 Dose: 100 mg Documented By: CHLOE Vital Signs Vital signs: Vital Signs - 8 hr 07/01/25 11:41 Temperature 98.6 F Pulse Rate 73 Respiratory Rate 18 Blood Pressure 147/66 H Pulse Oximetry 96 Oxygen Delivery Method Room Air MDM - Animal Bite <Shruthi Souza PA-C - Last Filed: 07/01/25 19:39> [facility] Narrative Medical decision making narrative: 79-year-old female presents to the ED status post a dog bite that happened 2 days ago. Patient has 3 wounds on her right forearm and wrist, the wound on the wrist appears to be infected. Antibiotics prescribed. Wound culture obtained. Recommend follow-up with PCP as soon as possible. ED return precautions discussed with patient. Patient verbalized understanding. Medical records reviewed: Yes Discharge Plan Departure Patient Disposition: Home Clinical Impression: Dog bite Instructions: DI for Dog Bite Activity Restrictions/Additional Instructions: You were evaluated in the emergency department today for a dog bite. It appears that the dog bite has been infected. You are being prescribed antibiotics to take for the next 2 weeks. Please follow-up with your PCP as soon as possible. Return to the ED if you have worsening symptoms. Prescriptions: New doxycycline hyclate 100 mg tablet 100 mg PO BID 14 Days Qty: 28 0RF No Action mupirocin 2 % ointment 1 applic topical BID Qty: 15 0RF lisinopril 5 mg Tablet 15 mg PO DAILY trazodone 50 mg Tablet 50 mg PO BEDTIME aspirin 81 mg Tablet,Delayed Release (Dr/Ec) 81 mg PO DAILY levothyroxine [Synthroid] 50 mcg Tablet 50 mcg PO DAILY vitamin B complex Capsule 1 cap PO DAILY Vitamin C 1,000 mg PO DAILY atorvastatin 10 mg PO DAILY Referrals: Librado Ramirez MD [Primary Care Provider, Family Practice] Stand Alone Forms: Patient Portal/API ED Sign-out <Henna Venegas DO - Last Filed: 07/02/25 10:05> Cosign ED Attending Cosignature Attestation: I was immediately available in the department for consultation.
== END 2025-07-01 12:55 | disposition home or self-care (01) ==
PROVIDERS: Emergency Provider Student in an Organized Health Care Education/Training Program; PCP Family Medicine
DX: S61.451A Open bite of right hand, initial encounter (principal); R22.31 Localized swelling, mass and lump, right upper limb; M79.641 Pain in right hand; W54.0XXA Bitten by dog, initial encounter
CPT/HCPCS: 87070; 87077; 87205; 99283